=== PATIENT | male | born 1980 | race Caucasian/White ===

== ENCOUNTER 2019-02-20 01:06 | Emergency (ER) | payer MEDICAID, OTHER ==
[~2019-02-20] VITALS: Ht 157.5 cm; Wt 84.1 kg
[~2019-02-20 01:06] MED LIST: ESCI10TA48 PO
[2019-02-20 01:10] VITALS: Ht 157.5 cm; Wt 84.1 kg
[2019-02-20 05:19] VITALS: BP 151/84; PULSE 67; RESP 18
== END 2019-02-20 05:34 | disposition home or self-care (01) ==
LOC: E/R 01:06
DX: F41.9 Anxiety disorder, unspecified (principal); R42 Dizziness and giddiness
CPT/HCPCS: 80048; 85025; Z7502; Z7610; 93005